=== PATIENT | female | born 1990 | race Caucasian/White ===

== ENCOUNTER 2022-03-05 10:45 | Inpatient (IN) | payer MEDICAID ==
[~2022-03-05] VITALS: Ht 170.2 cm; Wt 108.4 kg
[~2022-03-05 10:45] MED LIST: ASPI-1450 PO; ATOR40TA28 PO; BUME1TAB34 PO; CARV25 PO; CLON0.2T PO; FURO80 PO; HYDR-4808 PO; NIFE-79 PO; OMEP20 PO; PHOSLOC PO; PLEC3TAB2 PO; PROM-163 PO; SERT-158 PO; TEMA15CA PO; VALS160T2 PO
[2022-03-05 12:31] LABS: BASOPHILS % (AUTO) 0.7 % (0.0-2.0); HEMATOCRIT 30.5 % (36-46); HEMOGLOBIN 10.1 g/dL (12.0-16.0); LYMPHOCYTES # (AUTO) 1.4 K/uL (1.0-4.8); LYMPHOCYTES % (AUTO) 11.5 % (22.0-44.0); MEAN CORPUSCULAR HEMOGLOBIN 31.1 pg (26.0-34.0); MEAN CORPUSCULAR HGB CONC 33.2 G/dL (31.0-37.0); MEAN CORPUSCULAR VOLUME 94 fL (80-100); MONOCYTES # (AUTO) 0.5 K/uL (0.1-1.0); MONOCYTES % (AUTO) 4.2 % (2.0-9.0); NEUTROPHILS # (AUTO) 9.5 K/uL (1.8-7.7); NEUTROPHILS % (AUTO) 80.6 % (40.0-70.0); PLATELET COUNT (AUTO) 237 K/uL (150-450); RED BLOOD CELL COUNT(AUTO) 3.25 MIL/uL (4.00-5.20); RED CELL DISTRIBUTION WIDTH 16.2 % (11.5-14.5)
[2022-03-05 12:56] LABS: CALCIUM, TOTAL 7.7 mg/dL (8.8-10.5); CREATININE 13.58 mg/dL (0.60-1.30); POTASSIUM 5.8 mmol/L (3.5-5.1)
[2022-03-05 13:00] LABS: ALBUMIN 3.4 g/dL (3.4-5.0); BILIRUBIN,TOTAL 0.6 mg/dL (0.1-1.0); TOTAL PROTEIN, SERUM 7.8 g/dL (6.4-8.2)
[2022-03-05] MEDS ORDERED: MORPHINE SULFATE 4 MG/ML SYRINGE IVP ONE (13:15)
[2022-03-05] MEDS ORDERED: ONDANSETRON HCL 4 MG/2 ML VIAL IVP ONE (13:15)
[2022-03-05] MEDS ORDERED: CALCIUM GLUCONATE 1,000 MG in DEXTROSE 5%-WATER 50 ML IV ONE (14:45)
[2022-03-05] MEDS ORDERED: OxyCODONE HCL/ACETAMINOPHEN 5-325 MG TABLET PO PRN (15:00)
[2022-03-05] MEDS ORDERED: ACETAMINOPHEN 325 MG TABLET PO PRN (15:00)
[2022-03-05] MEDS ORDERED: DEXTROSE 50%-WATER 25 GM/50 ML SYRINGE IVP PRN (15:00)
[2022-03-05 15:22] LABS: COVID AG,FIA SOURCE NASAL SWAB
[2022-03-05] MEDS: HEPARIN SODIUM,PORCINE 5,000 UNITS/ML VIAL SQ SCH ×5 (15:41→23:31)
[2022-03-05 17:50] VITALS: BP 149/116
[2022-03-05 18:55] VITALS: BP 169/67
[2022-03-05 19:25] VITALS: BP 100/65
[2022-03-05 19:55] VITALS: BP 215/87
[2022-03-05 20:21] LABS: GLUCOMETER DEV NAME(LOC) 5S.2B; GLUCOSE,POINT OF CARE 106 MG/DL (70-110)
[2022-03-05 20:25] VITALS: BP 204/94
[2022-03-05] MEDS: DOCUSATE SODIUM 100 MG CAPSULE PO SCH (20:48)
[2022-03-05 20:55] VITALS: BP 185/85
[2022-03-05] MEDS: CloNIDine HCL 0.1 MG TABLET PO PRN (21:33)
[2022-03-06] VITALS (18 sets, daily range): BP systolic 134–226; BP diastolic 58–117
[2022-03-06 03:21] LABS: GLUCOMETER DEV NAME(LOC) 5S.2B; GLUCOSE,POINT OF CARE 83 MG/DL (70-110)
[2022-03-06 07:06] LABS: GLUCOMETER DEV NAME(LOC) 5S.2B; GLUCOSE,POINT OF CARE 76 MG/DL (70-110)
[2022-03-06] MEDS: HEPARIN SODIUM,PORCINE 5,000 UNITS/ML VIAL SQ SCH ×2 (08:00→16:00)
[2022-03-06] MEDS: DOCUSATE SODIUM 100 MG CAPSULE PO SCH ×2 (09:00→20:31)
[2022-03-06] MEDS: FAMOTIDINE 20 MG TABLET PO SCH (09:10)
[2022-03-06] MEDS: CloNIDine HCL 0.1 MG TABLET PO PRN (09:10)
[2022-03-06 09:36] LABS: BASOPHILS % (AUTO) 0.6 % (0.0-2.0); EOSINOPHILS % (AUTO) 3.9 % (1.0-6.0); HEMATOCRIT 30.7 % (36-46); HEMOGLOBIN 10.1 g/dL (12.0-16.0); LYMPHOCYTES # (AUTO) 1.4 K/uL (1.0-4.8); LYMPHOCYTES % (AUTO) 15.2 % (22.0-44.0); MEAN CORPUSCULAR HEMOGLOBIN 31.6 pg (26.0-34.0); MEAN CORPUSCULAR HGB CONC 33.1 G/dL (31.0-37.0); MEAN CORPUSCULAR VOLUME 96 fL (80-100); MONOCYTES # (AUTO) 0.4 K/uL (0.1-1.0); MONOCYTES % (AUTO) 4.5 % (2.0-9.0); NEUTROPHILS # (AUTO) 6.8 K/uL (1.8-7.7); NEUTROPHILS % (AUTO) 75.8 % (40.0-70.0); PLATELET COUNT (AUTO) 228 K/uL (150-450); RED BLOOD CELL COUNT(AUTO) 3.21 MIL/uL (4.00-5.20); RED CELL DISTRIBUTION WIDTH 16.7 % (11.5-14.5)
[2022-03-06 09:40] LABS: CALCIUM, TOTAL 8.5 mg/dL (8.8-10.5); CREATININE 11.05 mg/dL (0.60-1.30); POTASSIUM 4.7 mmol/L (3.5-5.1)
[2022-03-06] MEDS ORDERED: SODIUM CHLORIDE 0.9% 1,000 ML ONE (09:54)
[2022-03-06] MEDS ORDERED: HydrOXYzine PAMOATE 25 MG CAPSULE PO PRN (12:30)
[2022-03-06] MEDS ORDERED: CARV12 PO (12:32)
[2022-03-06] MEDS ORDERED: NIFE90TA65 PO (12:33)
[2022-03-06] MEDS: ONDANSETRON HCL 4 MG/2 ML VIAL IVP PRN (14:10)
[2022-03-06] MEDS: CloNIDine HCL 0.2 MG TABLET PO SCH ×2 (14:51→20:31)
[2022-03-06] MEDS ORDERED: LIDOCAINE/PF 1% 2 ML VIAL IV ONE (16:46)
[2022-03-06] MEDS: SEVELAMER CARBONATE 800 MG TABLET PO SCH (17:20)
[2022-03-06] MEDS: HydrALAZINE HCL 20 MG/ML VIAL IVP PRN ×2 (17:20→18:18)
[2022-03-06] MEDS: INSULIN LISPRO 100 UNITS/ML SQ PRN ×2 (17:48→20:37)
[2022-03-06] MEDS: CARVEDILOL 12.5 MG TABLET PO SCH (20:31)
[2022-03-06] MEDS ORDERED: ATORVASTATIN CALCIUM 40 MG TABLET PO SCH (21:00)
[2022-03-06] MEDS ORDERED: NIFEdipine 90 MG ER TABLET PO SCH (21:00)
[2022-03-06] MEDS ORDERED: BUMETANIDE 1 MG TABLET PO SCH (21:00)
[2022-03-06 21:31] LABS: GLUCOMETER DEV NAME(LOC) 5S.2B; GLUCOSE,POINT OF CARE 198 MG/DL (70-110)
[2022-03-06 21:31] LABS: GLUCOMETER DEV NAME(LOC) 5S.2B; GLUCOSE,POINT OF CARE 151 MG/DL (70-110)
[2022-03-06 21:31] LABS: GLUCOMETER DEV NAME(LOC) 5S.2B; GLUCOSE,POINT OF CARE 126 MG/DL (70-110)
[2022-03-07 00:12] VITALS: BP 172/79
[2022-03-07] MEDS: HydrALAZINE HCL 20 MG/ML VIAL IVP PRN (01:16)
[2022-03-07 05:30] VITALS: BP 149/71
[2022-03-07] MEDS: INSULIN LISPRO 100 UNITS/ML SQ PRN ×3 (05:50→17:36)
[2022-03-07 06:56] LABS: GLUCOMETER DEV NAME(LOC) 5S.2B; GLUCOSE,POINT OF CARE 173 MG/DL (70-110)
[2022-03-07] MEDS: HEPARIN SODIUM,PORCINE 5,000 UNITS/ML VIAL SQ SCH ×3 (08:00→15:49)
[2022-03-07 08:33] VITALS: BP 111/52
[2022-03-07] MEDS ORDERED: VALSARTAN 160 MG TABLET PO SCH (09:00)
[2022-03-07] MEDS ORDERED: ASPIRIN 81 MG CHEWABLE TABLET PO SCH (09:00)
[2022-03-07] MEDS: DOCUSATE SODIUM 100 MG CAPSULE PO SCH (09:00)
[2022-03-07] MEDS ORDERED: FUROSEMIDE 80 MG TABLET PO SCH (09:00)
[2022-03-07] MEDS: FAMOTIDINE 20 MG TABLET PO SCH (09:04)
[2022-03-07] MEDS: SEVELAMER CARBONATE 800 MG TABLET PO SCH ×3 (09:04→17:30)
[2022-03-07] MEDS: CloNIDine HCL 0.2 MG TABLET PO SCH ×2 (09:04→15:49)
[2022-03-07] MEDS: CARVEDILOL 12.5 MG TABLET PO SCH (09:04)
[2022-03-07] MEDS: ONDANSETRON HCL 4 MG/2 ML VIAL IVP PRN ×2 (09:12→15:54)
[2022-03-07] MEDS ORDERED: NIFE90TA91 PO ×2 (09:46→10:43)
[2022-03-07] MEDS ORDERED: SEVE800T17 PO (10:43)
[2022-03-07] MEDS ORDERED: CLON0.2T2 PO (10:43)
[2022-03-07] MEDS ORDERED: FURO80 PO (10:43)
[2022-03-07] MEDS ORDERED: CARV25 PO (10:43)
[2022-03-07] MEDS ORDERED: ATOR40TA71 PO (10:43)
[2022-03-07] MEDS ORDERED: ASPI81 PO (10:43)
[2022-03-07] MEDS ORDERED: VALS160T2 PO (10:43)
[2022-03-07 12:01] VITALS: BP 125/62
[2022-03-07 19:56] LABS: GLUCOMETER DEV NAME(LOC) 5S.2B; GLUCOSE,POINT OF CARE 170 MG/DL (70-110)
[2022-03-07 19:56] LABS: GLUCOMETER DEV NAME(LOC) 5S.2B; GLUCOSE,POINT OF CARE 207 MG/DL (70-110)
[2022-03-07] MEDS ORDERED: CARVEDILOL 25 MG TABLET PO SCH (21:00)
[2022-03-08] MEDS ORDERED: EPOETIN ALFA 10,000 UNITS/ML 2 ML VIAL SQ SCH (09:00)
== END 2022-03-07 19:40 | disposition home or self-care (01) | DRG 425 ==
LOC: EMS 10:45 → 5N 16:20
PROVIDERS: ADMIT Internal Medicine; ATTEND Internal Medicine
PROC: 5A1D70Z Performance of Urinary Filtration, Intermittent, Less than 6 Hours Per Day (ICD-10-PCS; principal; 2022-03-05)
PROC: 5A1D70Z Performance of Urinary Filtration, Intermittent, Less than 6 Hours Per Day (ICD-10-PCS; 2022-03-06)
DX: E87.70 Fluid overload, unspecified (principal); U07.1 COVID-19; I12.0 Hypertensive chronic kidney disease with stage 5 chronic kidney disease or end stage renal disease; N18.6 End stage renal disease; E11.22 Type 2 diabetes mellitus with diabetic chronic kidney disease; D63.1 Anemia in chronic kidney disease; N25.81 Secondary hyperparathyroidism of renal origin; Z20.822 Contact with and (suspected) exposure to COVID-19; E11.43 Type 2 diabetes mellitus with diabetic autonomic (poly)neuropathy; E66.01 Morbid (severe) obesity due to excess calories; E87.5 Hyperkalemia; K31.84 Gastroparesis; Z79.4 Long term (current) use of insulin; Z79.899 Other long term (current) drug therapy; Z83.3 Family history of diabetes mellitus; Z99.2 Dependence on renal dialysis; Z91.013 Allergy to seafood; Z68.37 Body mass index [BMI] 37.0-37.9, adult; Z86.73 Personal history of transient ischemic attack (TIA), and cerebral infarction without residual deficits; E11.40 Type 2 diabetes mellitus with diabetic neuropathy, unspecified
CPT/HCPCS: 71045; 80048; 80053; 82962; 83880; 84484; 84703; 85025; 87081; 87340; 90935; 93005; 99291; J0360; J0610; J0885; J1644; J2270; J2405; J3490; J7030; J7060; 36415-L1; 36415-TC

== ENCOUNTER 2023-01-14 09:52 | Inpatient (IN) | payer MEDICAID ==
[~2023-01-14] VITALS: Ht 165.1 cm; Wt 112.0 kg
[~2023-01-14 09:52] MED LIST changes: -ASPI-1450 PO; +ASPI81 PO; -ATOR40TA28 PO; +ATOR40TA71 PO; -BUME1TAB34 PO; -CLON0.2T PO; +CLON0.2T2 PO; -NIFE-79 PO; +NIFE90TA91 PO; -PROM-163 PO; +PROM-223 PO; +SEVE800T17 PO
[2023-01-14 11:23] LABS: BASOPHILS % (AUTO) 1.3 % (0.0-2.0); EOSINOPHILS % (AUTO) 3.5 % (1.0-6.0); HEMATOCRIT 24.9 % (36-46); HEMOGLOBIN 8.3 g/dL (12.0-16.0); MEAN CORPUSCULAR HEMOGLOBIN 31.4 pg (26.0-34.0); MEAN CORPUSCULAR HGB CONC 33.3 G/dL (31.0-37.0); MEAN CORPUSCULAR VOLUME 94 fL (80-100); MONOCYTES # (AUTO) 0.6 K/uL (0.1-1.0); MONOCYTES % (AUTO) 7.7 % (2.0-9.0); NEUTROPHILS % (AUTO) 74.5 % (40.0-70.0); RED BLOOD CELL COUNT(AUTO) 2.64 MIL/uL (4.00-5.20); RED CELL DISTRIBUTION WIDTH 19.3 % (11.5-14.5)
[2023-01-14 11:26] LABS: CALCIUM, TOTAL 8.6 mg/dL (8.8-10.5); CREATININE 9.9 mg/dL (0.60-1.30); POTASSIUM 5.6 mmol/L (3.5-5.1)
[2023-01-14 11:32] LABS: ALBUMIN 3.5 g/dL (3.4-5.0); BILIRUBIN,TOTAL 0.4 mg/dL (0.1-1.0); TOTAL PROTEIN, SERUM 8.2 g/dL (6.4-8.2)
[2023-01-14 11:39] LABS: PLATELET COUNT (AUTO) 191 K/uL (150-450)
[2023-01-14] MEDS ORDERED: CALCIUM GLUCONATE 1,000 MG in DEXTROSE 5%-WATER 50 ML IV ONE (12:00)
[2023-01-14] MEDS ORDERED: MORPHINE SULFATE 4 MG/ML SYRINGE IVP ONE (12:45)
[2023-01-14] MEDS ORDERED: ONDANSETRON HCL 4 MG/2 ML VIAL IVP ONE (12:45)
[2023-01-14 13:09] LABS: INR 1.2 (0.9-1.1); PROTHROMBIN TIME 12.6 SEC (9.4-11.6)
[2023-01-14] MEDS ORDERED: HydrOXYzine PAMOATE 25 MG CAPSULE PO PRN (15:30)
[2023-01-14] MEDS ORDERED: ACETAMINOPHEN 325 MG TABLET PO PRN (15:30)
[2023-01-14] MEDS ORDERED: ZOLPIDEM TARTRATE 5 MG TABLET PO PRN (15:30)
[2023-01-14] MEDS ORDERED: BISACODYL 10 MG RECTAL RECTAL SUPPOSITORY PR PRN (15:30)
[2023-01-14] MEDS ORDERED: MAGNESIUM HYDROXIDE SUSPENSION 30 ML UDCUP PO PRN (15:30)
[2023-01-14] MEDS ORDERED: NIFE90TA91 PO (15:32)
[2023-01-14] MEDS ORDERED: TEMA15CA PO (15:32)
[2023-01-14] MEDS ORDERED: ATOR40TA28 PO (15:32)
[2023-01-14] MEDS ORDERED: PANT40TA54 PO (15:38)
[2023-01-14] MEDS ORDERED: ALBU18HF12 PO (15:38)
[2023-01-14] MEDS ORDERED: LIDO5CRE TP (15:38)
[2023-01-14] MEDS ORDERED: GABA-529 PO (15:38)
[2023-01-14] MEDS ORDERED: CALC0.253 PO (15:38)
[2023-01-14] MEDS ORDERED: CARV12.530 PO (15:38)
[2023-01-14] MEDS ORDERED: CHOL231P PO (15:38)
[2023-01-14] MEDS ORDERED: SODI10PO2 PO (15:38)
[2023-01-14] MEDS ORDERED: [UNRECOGNIZED DRUG - CODE] PO (15:38)
[2023-01-14] MEDS: HEPARIN SODIUM,PORCINE 5,000 UNITS/ML VIAL SQ SCH ×2 (15:45→23:53)
[2023-01-14] MEDS: CloNIDine HCL 0.2 MG TABLET PO SCH ×2 (15:45→23:40)
[2023-01-14] MEDS: MORPHINE SULFATE 2 MG/ML SYRINGE IVP PRN ×2 (15:45→23:53)
[2023-01-14] MEDS: ONDANSETRON HCL 4 MG/2 ML VIAL IVP PRN (15:48)
[2023-01-14] MEDS: CALCIUM ACETATE 667 MG CAPSULE PO SCH (17:40)
[2023-01-14 21:15] VITALS: BP 170/81; PULSE 62; RESP 19; TEMP 97.6
[2023-01-14 21:30] VITALS: BP 178/79; PULSE 60; RESP 19
[2023-01-14 22:00] VITALS: BP 180/86; PULSE 60; RESP 19
[2023-01-14 22:30] VITALS: BP 180/82; PULSE 68; RESP 18
[2023-01-14 23:00] VITALS: BP 182/64; PULSE 68; RESP 18
[2023-01-14 23:30] VITALS: BP 186/80; PULSE 69; RESP 18
[2023-01-14] MEDS: DOCUSATE SODIUM 100 MG CAPSULE PO SCH (23:40)
[2023-01-14] MEDS: ATORVASTATIN CALCIUM 40 MG TABLET PO SCH (23:41)
[2023-01-14] MEDS: METOCLOPRAMIDE HCL 5 MG TABLET PO SCH (23:41)
[2023-01-14] MEDS: CARVEDILOL 25 MG TABLET PO SCH (23:41)
[2023-01-14] MEDS: NIFEdipine 90 MG ER TABLET PO SCH (23:41)
[2023-01-15] VITALS (16 sets, daily range): BP systolic 11–198; BP diastolic 61–86; PULSE 61–76; RESP 18–20; TEMP 97.7–98.6
[2023-01-15] MEDS: HydrALAZINE HCL 20 MG/ML VIAL IVP PRN ×2 (01:14→20:49)
[2023-01-15] MEDS: CloNIDine HCL 0.2 MG TABLET PO SCH ×3 (04:45→20:55)
[2023-01-15] MEDS: ONDANSETRON HCL 4 MG/2 ML VIAL IVP PRN ×3 (06:42→19:28)
[2023-01-15] MEDS: MORPHINE SULFATE 2 MG/ML SYRINGE IVP PRN ×3 (06:43→19:28)
[2023-01-15] MEDS: HEPARIN SODIUM,PORCINE 5,000 UNITS/ML VIAL SQ SCH ×3 (08:00→23:22)
[2023-01-15] MEDS: DOCUSATE SODIUM 100 MG CAPSULE PO SCH ×2 (09:00→20:49)
[2023-01-15] MEDS: SERTRALINE HCL 50 MG TABLET PO SCH (09:21)
[2023-01-15] MEDS: VALSARTAN 160 MG TABLET PO SCH (09:21)
[2023-01-15] MEDS: CARVEDILOL 25 MG TABLET PO SCH ×2 (09:22→20:54)
[2023-01-15] MEDS: ASPIRIN 81 MG CHEWABLE TABLET PO SCH (09:22)
[2023-01-15] MEDS: PANTOPRAZOLE SODIUM 40 MG DR TABLET PO SCH (09:22)
[2023-01-15] MEDS: CALCIUM ACETATE 667 MG CAPSULE PO SCH ×3 (09:23→18:00)
[2023-01-15] MEDS: HYDROCODONE/ACETAMINOPHEN 5-325 MG TABLET PO PRN ×3 (09:37→23:24)
[2023-01-15] MEDS: METOCLOPRAMIDE HCL 5 MG TABLET PO SCH ×3 (12:29→20:49)
[2023-01-15 14:53] LABS: BASOPHILS % (AUTO) 0.6 % (0.0-2.0); EOSINOPHILS % (AUTO) 4.7 % (1.0-6.0); HEMATOCRIT 24.1 % (36-46); HEMOGLOBIN 7.9 g/dL (12.0-16.0); LYMPHOCYTES # (AUTO) 0.8 K/uL (1.0-4.8); LYMPHOCYTES % (AUTO) 14.4 % (22.0-44.0); MEAN CORPUSCULAR HGB CONC 32.7 G/dL (31.0-37.0); MEAN CORPUSCULAR VOLUME 95 fL (80-100); MONOCYTES # (AUTO) 0.4 K/uL (0.1-1.0); MONOCYTES % (AUTO) 7.6 % (2.0-9.0); NEUTROPHILS # (AUTO) 4.2 K/uL (1.8-7.7); NEUTROPHILS % (AUTO) 72.7 % (40.0-70.0); PLATELET COUNT (AUTO) 176 K/uL (150-450); RED BLOOD CELL COUNT(AUTO) 2.54 MIL/uL (4.00-5.20); RED CELL DISTRIBUTION WIDTH 19.8 % (11.5-14.5)
[2023-01-15 15:05] LABS: CALCIUM, TOTAL 8.8 mg/dL (8.8-10.5); CREATININE 6.46 mg/dL (0.60-1.30); POTASSIUM 4.9 mmol/L (3.5-5.1)
[2023-01-15] MEDS ORDERED: SODIUM CHLORIDE 0.9% 1,000 ML ONE (17:04)
[2023-01-15] MEDS: ATORVASTATIN CALCIUM 40 MG TABLET PO SCH (20:49)
[2023-01-15] MEDS: NIFEdipine 90 MG ER TABLET PO SCH (21:40)
[2023-01-16] VITALS: BP 149/73; PULSE 67; RESP 20; TEMP 98.2
[2023-01-16] MEDS: MORPHINE SULFATE 2 MG/ML SYRINGE IVP PRN ×5 (02:49→23:22)
[2023-01-16] MEDS: ONDANSETRON HCL 4 MG/2 ML VIAL IVP PRN ×4 (02:49→23:21)
[2023-01-16 04:00] VITALS: BP 139/54; PULSE 63; RESP 18; TEMP 98
[2023-01-16] MEDS: HYDROCODONE/ACETAMINOPHEN 5-325 MG TABLET PO PRN ×2 (06:08→20:27)
[2023-01-16 07:26] LABS: BASOPHILS % (AUTO) 0.7 % (0.0-2.0); EOSINOPHILS % (AUTO) 6.2 % (1.0-6.0); HEMATOCRIT 24.9 % (36-46); HEMOGLOBIN 7.9 g/dL (12.0-16.0); LYMPHOCYTES % (AUTO) 18.2 % (22.0-44.0); MEAN CORPUSCULAR HEMOGLOBIN 30.3 pg (26.0-34.0); MEAN CORPUSCULAR HGB CONC 31.7 G/dL (31.0-37.0); MEAN CORPUSCULAR VOLUME 95 fL (80-100); MONOCYTES # (AUTO) 0.5 K/uL (0.1-1.0); MONOCYTES % (AUTO) 9.9 % (2.0-9.0); NEUTROPHILS # (AUTO) 3.6 K/uL (1.8-7.7); PLATELET COUNT (AUTO) 184 K/uL (150-450); RED BLOOD CELL COUNT(AUTO) 2.61 MIL/uL (4.00-5.20); RED CELL DISTRIBUTION WIDTH 20.4 % (11.5-14.5)
[2023-01-16 07:37] VITALS: BP 105/44; PULSE 60; RESP 17; TEMP 97.9
[2023-01-16 07:48] LABS: CREATININE 4.18 mg/dL (0.60-1.30); MAGNESIUM 2.4 mg/dL (1.80-2.40); PHOSPHORUS 5.2 mg/dL (2.5-4.9); POTASSIUM 4.5 mmol/L (3.5-5.1)
[2023-01-16 07:53] LABS: HEMOGLOBIN A1C 5.8 % (3.8-5.6)
[2023-01-16] MEDS: CALCIUM ACETATE 667 MG CAPSULE PO SCH ×3 (08:00→17:53)
[2023-01-16] MEDS: HEPARIN SODIUM,PORCINE 5,000 UNITS/ML VIAL SQ SCH ×4 (08:00→23:21)
[2023-01-16] MEDS: PANTOPRAZOLE SODIUM 40 MG DR TABLET PO SCH (08:24)
[2023-01-16] MEDS: VALSARTAN 160 MG TABLET PO SCH ×2 (08:24→09:00)
[2023-01-16] MEDS: METOCLOPRAMIDE HCL 5 MG TABLET PO SCH ×3 (08:24→20:26)
[2023-01-16] MEDS: CARVEDILOL 25 MG TABLET PO SCH ×3 (08:24→20:26)
[2023-01-16] MEDS: ASPIRIN 81 MG CHEWABLE TABLET PO SCH (08:24)
[2023-01-16] MEDS: SERTRALINE HCL 50 MG TABLET PO SCH (08:24)
[2023-01-16] MEDS: CloNIDine HCL 0.2 MG TABLET PO SCH ×4 (08:24→20:26)
[2023-01-16] MEDS: DOCUSATE SODIUM 100 MG CAPSULE PO SCH ×2 (09:00→20:26)
[2023-01-16] MEDS ORDERED: FUROSEMIDE 80 MG TABLET PO SCH (09:00)
[2023-01-16] MEDS ORDERED: LIDOCAINE/PF 1% 2 ML VIAL IM ONE (12:00)
[2023-01-16 15:23] VITALS: BP 134/50; PULSE 66; RESP 18; TEMP 97.7
[2023-01-16 20:00] VITALS: BP 110/76; PULSE 69; RESP 18; TEMP 98.2
[2023-01-16] MEDS: NIFEdipine 90 MG ER TABLET PO SCH (20:26)
[2023-01-16] MEDS: ATORVASTATIN CALCIUM 40 MG TABLET PO SCH (20:27)
[2023-01-17] VITALS (14 sets, daily range): BP systolic 94–132; BP diastolic 35–67; PULSE 59–87; RESP 17–20; TEMP 97.3–98.4
[2023-01-17] MEDS: MORPHINE SULFATE 2 MG/ML SYRINGE IVP PRN ×2 (05:33→10:42)
[2023-01-17] MEDS: ONDANSETRON HCL 4 MG/2 ML VIAL IVP PRN ×2 (05:33→13:34)
[2023-01-17 07:35] LABS: BASOPHILS % (AUTO) 0.8 % (0.0-2.0); EOSINOPHILS % (AUTO) 5.9 % (1.0-6.0); HEMATOCRIT 24.6 % (36-46); HEMOGLOBIN 8.1 g/dL (12.0-16.0); LYMPHOCYTES # (AUTO) 1.2 K/uL (1.0-4.8); LYMPHOCYTES % (AUTO) 18.3 % (22.0-44.0); MEAN CORPUSCULAR HEMOGLOBIN 31.5 pg (26.0-34.0); MEAN CORPUSCULAR HGB CONC 33.1 G/dL (31.0-37.0); MEAN CORPUSCULAR VOLUME 95 fL (80-100); MONOCYTES # (AUTO) 0.5 K/uL (0.1-1.0); MONOCYTES % (AUTO) 8.4 % (2.0-9.0); NEUTROPHILS # (AUTO) 4.2 K/uL (1.8-7.7); NEUTROPHILS % (AUTO) 66.6 % (40.0-70.0); PLATELET COUNT (AUTO) 181 K/uL (150-450); RED BLOOD CELL COUNT(AUTO) 2.58 MIL/uL (4.00-5.20); RED CELL DISTRIBUTION WIDTH 19.9 % (11.5-14.5)
[2023-01-17 07:52] LABS: CALCIUM, TOTAL 8.7 mg/dL (8.8-10.5); CREATININE 6.14 mg/dL (0.60-1.30); POTASSIUM 5.2 mmol/L (3.5-5.1)
[2023-01-17] MEDS: HEPARIN SODIUM,PORCINE 5,000 UNITS/ML VIAL SQ SCH ×2 (08:38→16:00)
[2023-01-17] MEDS: HYDROCODONE/ACETAMINOPHEN 5-325 MG TABLET PO PRN ×2 (08:38→13:34)
[2023-01-17] MEDS: CALCIUM ACETATE 667 MG CAPSULE PO SCH ×2 (08:38→12:00)
[2023-01-17] MEDS: DOCUSATE SODIUM 100 MG CAPSULE PO SCH (08:39)
[2023-01-17] MEDS: METOCLOPRAMIDE HCL 5 MG TABLET PO SCH ×2 (08:39→16:00)
[2023-01-17] MEDS: SERTRALINE HCL 50 MG TABLET PO SCH (08:39)
[2023-01-17] MEDS: PANTOPRAZOLE SODIUM 40 MG DR TABLET PO SCH (08:39)
[2023-01-17] MEDS: ASPIRIN 81 MG CHEWABLE TABLET PO SCH (08:39)
[2023-01-17] MEDS ORDERED: SODIUM CHLORIDE 0.9% 4,000 ML ONE (08:43)
[2023-01-17] MEDS: CARVEDILOL 25 MG TABLET PO SCH (09:00)
[2023-01-17] MEDS: CloNIDine HCL 0.2 MG TABLET PO SCH ×2 (09:00→16:00)
[2023-01-17] MEDS: VALSARTAN 160 MG TABLET PO SCH (09:00)
[2023-01-17] MEDS ORDERED: EPOETIN ALFA 10,000 UNITS/ML VIAL SQ SCH (09:00)
[2023-01-17] MEDS ORDERED: LIDOCAINE/PF 1% 2 ML VIAL IM ONE (12:00)
== END 2023-01-17 15:40 | disposition left against medical advice (07) | DRG 199 ==
LOC: EMS 09:53 → 5S 20:00
PROVIDERS: ADMIT Internal Medicine; ATTEND Internal Medicine
PROC: 5A1D70Z Performance of Urinary Filtration, Intermittent, Less than 6 Hours Per Day (ICD-10-PCS; principal; 2023-01-14)
PROC: 5A1D70Z Performance of Urinary Filtration, Intermittent, Less than 6 Hours Per Day (ICD-10-PCS; 2023-01-15)
PROC: 5A1D70Z Performance of Urinary Filtration, Intermittent, Less than 6 Hours Per Day (ICD-10-PCS; 2023-01-17)
DX: I16.0 Hypertensive urgency (principal); N18.6 End stage renal disease; D63.1 Anemia in chronic kidney disease; E11.22 Type 2 diabetes mellitus with diabetic chronic kidney disease; E87.1 Hypo-osmolality and hyponatremia; E87.5 Hyperkalemia; I12.0 Hypertensive chronic kidney disease with stage 5 chronic kidney disease or end stage renal disease; E87.70 Fluid overload, unspecified; E11.65 Type 2 diabetes mellitus with hyperglycemia; E11.43 Type 2 diabetes mellitus with diabetic autonomic (poly)neuropathy; K52.9 Noninfective gastroenteritis and colitis, unspecified; I69.398 Other sequelae of cerebral infarction; K31.84 Gastroparesis; E78.5 Hyperlipidemia, unspecified; Z53.29 Procedure and treatment not carried out because of patient's decision for other reasons; E66.01 Morbid (severe) obesity due to excess calories; Z79.899 Other long term (current) drug therapy; Z99.2 Dependence on renal dialysis; Z68.41 Body mass index [BMI] 40.0-44.9, adult; Z91.013 Allergy to seafood
CPT/HCPCS: 71045; 74176; 80048; 80053; 83036; 83735; 83880; 84100; 84484; 85025; 85610; 85730; 87081; 87340; 90935; 93005; 99285; J0360; J0610; J0885; J1644; J2270; J2405; J3490; J7030; J7060; 36415-L1; 36415-TC

== ENCOUNTER 2023-02-25 19:26 | Inpatient (IN) | payer MEDICAID ==
[~2023-02-25] VITALS: Ht 162.6 cm; Wt 113.7 kg
[~2023-02-25 19:26] MED LIST changes: +ALBU18HF12 PO; +ATOR40TA28 PO; -ATOR40TA71 PO; +CALC0.253 PO; +CARV12.530 PO; -CARV25 PO; +CHOL231P PO; +GABA-529 PO; +LIDO5CRE TP; -OMEP20 PO; +PANT40TA54 PO; +SODI10PO2 PO; +[UNRECOGNIZED DRUG - CODE] PO
[2023-02-25] MEDS ORDERED: MORPHINE SULFATE 2 MG/ML SYRINGE IVP ONE (22:15)
[2023-02-25] MEDS ORDERED: ONDANSETRON HCL 4 MG/2 ML VIAL IVP ONE (22:15)
[2023-02-25] MEDS ORDERED: ACETAMINOPHEN 500 MG TABLET PO ONE (22:15)
[2023-02-25 22:16] LABS: ANION GAP 16 mmol/L (8-16); CALCIUM, TOTAL 8.4 mg/dL (8.8-10.5); CARBON DIOXIDE 29 mmol/L (22-29); CHLORIDE 89 mmol/L (98-107); CREATININE 5.67 mg/dL (0.60-1.30); GLOMERULAR FILTR. RATE CALC 9 mL/min (>60); GLUCOSE,RANDOM 141 mg/dL (70-110); POTASSIUM 3.7 mmol/L (3.5-5.1); SODIUM SERUM 134 mmol/L (136-145); UREA NITROGEN, BLOOD 37 mg/dL (7-18)
[2023-02-25 22:24] LABS: TROPONIN I-HIGH SENSITIVITY 22 ng/L (<51)
[2023-02-25 22:27] LABS: ALANINE AMINOTRANSFERASE 7 U/L (12-78); ALBUMIN 3.4 g/dL (3.4-5.0); ALKALINE PHOSPHATASE 219 U/L (46-116); ASPARTATE AMINOTRANSFERASE 15 U/L (15-37); BILIRUBIN,TOTAL 0.7 mg/dL (0.1-1.0); HCG,QUANTITATIVE < 1 mIU/mL (0-6)
[2023-02-25] MEDS ORDERED: HYDROCODONE/ACETAMINOPHEN 5-325 MG TABLET PO PRN (23:15)
[2023-02-25] MEDS ORDERED: AZITHROMYCIN 500 MG/NS 250 ML IV ONE (23:15)
[2023-02-25] MEDS ORDERED: BISACODYL 10 MG RECTAL RECTAL SUPPOSITORY PR PRN ×2 (23:15→23:30)
[2023-02-25] MEDS ORDERED: MAGNESIUM HYDROXIDE SUSPENSION 30 ML UDCUP PO PRN ×2 (23:15→23:30)
[2023-02-25] MEDS ORDERED: ZOLPIDEM TARTRATE 5 MG TABLET PO PRN ×2 (23:15→23:30)
[2023-02-25] MEDS ORDERED: IPRATROPIUM BROMIDE 0.5 MG/2.5 ML NEB SOLUTION NEB PRN ×2 (23:15→23:30)
[2023-02-25] MEDS ORDERED: CefTRIAXone 1 GM/DEXTROSE 50 ML IV ONE (23:15)
[2023-02-25] MEDS ORDERED: ACETAMINOPHEN 325 MG TABLET PO PRN ×2 (23:15→23:30)
[2023-02-25] MEDS ORDERED: ALBUTEROL SULFATE 2.5 MG/0.5 ML NEB SOLUTION NEB PRN ×2 (23:15→23:30)
[2023-02-25] MEDS ORDERED: ALBUTEROL SULFATE HFA 90 MCG/PUFF 8 GM INHALER IH PRN (23:15)
[2023-02-25] MEDS ORDERED: MORPHINE SULFATE 2 MG/ML SYRINGE IVP PRN (23:15)
[2023-02-26] VITALS (9 sets, daily range): BP systolic 119–166; BP diastolic 56–105; PULSE 63–75; RESP 17–20; TEMP 97.7–98.8
[2023-02-26] MEDS ORDERED: HEPARIN SODIUM,PORCINE 5,000 UNITS/ML VIAL SQ SCH
[2023-02-26 00:54] LABS: EOSINOPHILS % (AUTO) 4.3 % (1.0-6.0); MONOCYTES # (AUTO) 0.5 K/uL (0.1-1.0); MONOCYTES % (AUTO) 6.3 % (2.0-9.0); RED BLOOD CELL COUNT(AUTO) 1.95 MIL/uL (4.00-5.20)
[2023-02-26 00:59] LABS: BASOPHILS % (AUTO) 0.3 % (0.0-2.0); LYMPHOCYTES % (AUTO) 13.3 % (22.0-44.0); MEAN CORPUSCULAR HEMOGLOBIN 31.8 pg (26.0-34.0); MEAN CORPUSCULAR HGB CONC 33.5 G/dL (31.0-37.0); MEAN CORPUSCULAR VOLUME 95 fL (80-100); NEUTROPHILS # (AUTO) 5.6 K/uL (1.8-7.7); NEUTROPHILS % (AUTO) 75.8 % (40.0-70.0); PLATELET COUNT (AUTO) 186 K/uL (150-450); RED CELL DISTRIBUTION WIDTH 16.6 % (11.5-14.5); WHITE BLOOD COUNT (AUTO) 7.4 K/uL (4.5-11.0)
[2023-02-26] MEDS ORDERED: DiphenhydrAMINE HCL 50 MG/ML VIAL IVP ONE (01:00)
[2023-02-26] MEDS ORDERED: METOCLOPRAMIDE HCL 5 MG/ML 2 ML VIAL IVP ONE ×2 (01:00→23:45)
[2023-02-26 01:02] LABS: HEMATOCRIT 18.6 % (36-46); HEMOGLOBIN 6.2 g/dL (12.0-16.0)
[2023-02-26 01:19] LABS: RBC MORPHOLOGY COMMENT NORMAL RBC MORPH
[2023-02-26] MEDS: ESCITALOPRAM OXALATE 10 MG TABLET PO SCH (08:16)
[2023-02-26] MEDS: ASPIRIN 81 MG CHEWABLE TABLET PO SCH (08:16)
[2023-02-26] MEDS: DOCUSATE SODIUM 100 MG CAPSULE PO SCH ×2 (08:16→21:00)
[2023-02-26] MEDS: CALCIUM ACETATE 667 MG CAPSULE PO SCH ×3 (08:16→17:00)
[2023-02-26] MEDS: GABAPENTIN 100 MG CAPSULE PO SCH ×3 (08:16→21:42)
[2023-02-26] MEDS: HYDROCODONE/ACETAMINOPHEN 5-325 MG TABLET PO PRN ×3 (08:16→17:00)
[2023-02-26] MEDS: CALCITRIOL 0.25 MCG CAPSULE PO SCH (08:16)
[2023-02-26] MEDS: HEPARIN SODIUM,PORCINE 5,000 UNITS/ML VIAL SQ SCH ×3 (08:17→15:39)
[2023-02-26] MEDS: PANTOPRAZOLE SODIUM 40 MG/VIAL IVP SCH (08:17)
[2023-02-26] MEDS: CARVEDILOL 6.25 MG TABLET PO SCH ×2 (08:17→21:42)
[2023-02-26] MEDS: MORPHINE SULFATE 2 MG/ML SYRINGE IVP PRN ×4 (08:37→22:56)
[2023-02-26] MEDS ORDERED: PANTOPRAZOLE SODIUM 40 MG DR TABLET PO SCH (09:00)
[2023-02-26] MEDS: PROMETHAZINE HCL 25 MG TABLET PO SCH ×2 (09:00→21:45)
[2023-02-26] MEDS ORDERED: PANTOPRAZOLE SODIUM 40 MG/VIAL IVP SCH (09:00)
[2023-02-26] MEDS ORDERED: ONDANSETRON HCL 4 MG/2 ML VIAL IM PRN (09:15)
[2023-02-26] MEDS: ONDANSETRON HCL 4 MG/2 ML VIAL IVP PRN ×3 (09:28→21:42)
[2023-02-26] MEDS: INSULIN LISPRO 100 UNITS/ML SQ PRN (12:25)
[2023-02-26] MEDS ORDERED: DEXTROSE 50%-WATER 25 GM/50 ML SYRINGE IVP PRN (12:30)
[2023-02-26] MEDS: PROMETHAZINE HCL 25 MG TABLET PO PRN (17:02)
[2023-02-26] MEDS: MIRTAZAPINE 15 MG TABLET PO SCH (21:42)
[2023-02-26] MEDS: PRAZOSIN HCL 1 MG CAPSULE PO SCH (21:42)
[2023-02-26] MEDS: ATORVASTATIN CALCIUM 40 MG TABLET PO SCH (21:42)
[2023-02-26] MEDS ORDERED: SODIUM CHLORIDE 0.9% 1,000 ML ONE (22:31)
[2023-02-27] VITALS (22 sets, daily range): BP systolic 101–180; BP diastolic 38–68; PULSE 61–74; RESP 18–20; TEMP 97.7–98.2
[2023-02-27 02:16] LABS: GLUCOMETER DEV NAME(LOC) 5N.2C; GLUCOSE,POINT OF CARE 97 MG/DL (70-110)
[2023-02-27] MEDS: MORPHINE SULFATE 2 MG/ML SYRINGE IVP PRN ×5 (03:42→21:03)
[2023-02-27] MEDS: AZITHROMYCIN 500 MG/NS 250 ML IV SCH ×2 (03:42→23:49)
[2023-02-27] MEDS: CefTRIAXone SODIUM 2 GM in DEXTROSE 5%-WATER 50 ML IV SCH ×2 (03:42→22:29)
[2023-02-27 05:41] LABS: GLUCOMETER DEV NAME(LOC) 5S.1B; GLUCOSE,POINT OF CARE 101 MG/DL (70-110)
[2023-02-27 05:41] LABS: GLUCOMETER DEV NAME(LOC) 5S.1B; GLUCOSE,POINT OF CARE 152 MG/DL (70-110)
[2023-02-27 06:06] LABS: COVID AG,FIA SOURCE NASOPHARYNGEAL
[2023-02-27 06:12] LABS: INFLUENZA TYPE A NEGATIVE FOR TYPE A (NEGATIVE); INFLUENZA TYPE B NEGATIVE FOR TYPE B (NEGATIVE)
[2023-02-27 06:29] LABS: SARS-COV2 (COVID) ANTIGEN,FIA Negative (Negative)
[2023-02-27] MEDS: CALCIUM ACETATE 667 MG CAPSULE PO SCH ×3 (08:00→16:53)
[2023-02-27] MEDS: ONDANSETRON HCL 4 MG/2 ML VIAL IVP PRN ×3 (08:17→23:48)
[2023-02-27] MEDS: GABAPENTIN 100 MG CAPSULE PO SCH ×3 (08:21→20:15)
[2023-02-27] MEDS: ASPIRIN 81 MG CHEWABLE TABLET PO SCH (08:21)
[2023-02-27] MEDS: ESCITALOPRAM OXALATE 10 MG TABLET PO SCH (08:21)
[2023-02-27] MEDS: FERROUS SULFATE 325 MG EC TABLET PO SCH (08:21)
[2023-02-27] MEDS: HEPARIN SODIUM,PORCINE 5,000 UNITS/ML VIAL SQ SCH ×4 (08:21→23:48)
[2023-02-27] MEDS: PANTOPRAZOLE SODIUM 40 MG/VIAL IVP SCH (08:22)
[2023-02-27] MEDS: CARVEDILOL 6.25 MG TABLET PO SCH ×3 (08:31→20:15)
[2023-02-27] MEDS: HYDROCODONE/ACETAMINOPHEN 5-325 MG TABLET PO PRN ×3 (09:57→18:12)
[2023-02-27 10:07] LABS: EOSINOPHILS % (AUTO) 4.9 % (1.0-6.0); LYMPHOCYTES # (AUTO) 1.5 K/uL (1.0-4.8); LYMPHOCYTES % (AUTO) 23.1 % (22.0-44.0); MEAN CORPUSCULAR HEMOGLOBIN 31.9 pg (26.0-34.0); MEAN CORPUSCULAR HGB CONC 32.8 G/dL (31.0-37.0); MEAN CORPUSCULAR VOLUME 97 fL (80-100); MONOCYTES # (AUTO) 0.4 K/uL (0.1-1.0); MONOCYTES % (AUTO) 6.8 % (2.0-9.0); NEUTROPHILS # (AUTO) 4.2 K/uL (1.8-7.7); NEUTROPHILS % (AUTO) 64.2 % (40.0-70.0); PLATELET COUNT (AUTO) 203 K/uL (150-450); RED BLOOD CELL COUNT(AUTO) 1.92 MIL/uL (4.00-5.20); RED CELL DISTRIBUTION WIDTH 16.7 % (11.5-14.5); WHITE BLOOD COUNT (AUTO) 6.5 K/uL (4.5-11.0)
[2023-02-27 10:17] LABS: HEMATOCRIT 18.6 % (36-46); HEMOGLOBIN 6.1 g/dL (12.0-16.0)
[2023-02-27 10:22] LABS: ALBUMIN 3.2 g/dL (3.4-5.0); BILIRUBIN,TOTAL 0.5 mg/dL (0.1-1.0); CALCIUM, TOTAL 8.4 mg/dL (8.8-10.5); CREATININE 8.23 mg/dL (0.60-1.30); POTASSIUM 4.7 mmol/L (3.5-5.1); TOTAL PROTEIN, SERUM 7.6 g/dL (6.4-8.2)
[2023-02-27 11:41] LABS: GLUCOMETER DEV NAME(LOC) 5N.1C; GLUCOSE,POINT OF CARE 82 MG/DL (70-110)
[2023-02-27] MEDS ORDERED: LIDOCAINE/PF 1% 2 ML VIAL IM ONE (12:00)
[2023-02-27 12:27] LABS: GLUCOMETER DEV NAME(LOC) 5N.2C; GLUCOSE,POINT OF CARE 122 MG/DL (70-110)
[2023-02-27 17:31] LABS: GLUCOMETER DEV NAME(LOC) 5S.1B; GLUCOSE,POINT OF CARE 85 MG/DL (70-110)
[2023-02-27] MEDS: MIRTAZAPINE 15 MG TABLET PO SCH (20:15)
[2023-02-27] MEDS: PRAZOSIN HCL 1 MG CAPSULE PO SCH (20:16)
[2023-02-27] MEDS: ATORVASTATIN CALCIUM 40 MG TABLET PO SCH (20:16)
[2023-02-27] MEDS: INSULIN LISPRO 100 UNITS/ML SQ PRN (20:17)
[2023-02-27 21:11] LABS: GLUCOMETER DEV NAME(LOC) 5N.2C; GLUCOSE,POINT OF CARE 172 MG/DL (70-110)
[2023-02-28] MEDS: PROMETHAZINE HCL 25 MG TABLET PO PRN ×2 (00:50→17:34)
[2023-02-28] MEDS: MORPHINE SULFATE 2 MG/ML SYRINGE IVP PRN ×6 (00:51→21:07)
[2023-02-28 00:55] VITALS: BP 136/46; PULSE 72; RESP 16; TEMP 98.6
[2023-02-28 04:40] VITALS: BP 124/46; PULSE 64; RESP 16; TEMP 97.8
[2023-02-28 05:01] LABS: GLUCOMETER DEV NAME(LOC) 5N.2C; GLUCOSE,POINT OF CARE 121 MG/DL (70-110)
[2023-02-28 07:07] LABS: BASOPHILS % (AUTO) 0.6 % (0.0-2.0); EOSINOPHILS % (AUTO) 4.5 % (1.0-6.0); HEMATOCRIT 21.8 % (36-46); HEMOGLOBIN 7.2 g/dL (12.0-16.0); LYMPHOCYTES # (AUTO) 1.3 K/uL (1.0-4.8); LYMPHOCYTES % (AUTO) 19.6 % (22.0-44.0); MEAN CORPUSCULAR HEMOGLOBIN 32.1 pg (26.0-34.0); MEAN CORPUSCULAR HGB CONC 33.2 G/dL (31.0-37.0); MEAN CORPUSCULAR VOLUME 96 fL (80-100); MONOCYTES # (AUTO) 0.6 K/uL (0.1-1.0); MONOCYTES % (AUTO) 9.5 % (2.0-9.0); NEUTROPHILS # (AUTO) 4.5 K/uL (1.8-7.7); NEUTROPHILS % (AUTO) 65.8 % (40.0-70.0); PLATELET COUNT (AUTO) 205 K/uL (150-450); RED BLOOD CELL COUNT(AUTO) 2.26 MIL/uL (4.00-5.20); RED CELL DISTRIBUTION WIDTH 16.7 % (11.5-14.5); WHITE BLOOD COUNT (AUTO) 6.8 K/uL (4.5-11.0)
[2023-02-28 07:29] LABS: ALBUMIN 3.3 g/dL (3.4-5.0); BILIRUBIN,TOTAL 0.4 mg/dL (0.1-1.0); CALCIUM, TOTAL 8.6 mg/dL (8.8-10.5); CREATININE 5.77 mg/dL (0.60-1.30); POTASSIUM 5.4 mmol/L (3.5-5.1); TOTAL PROTEIN, SERUM 7.8 g/dL (6.4-8.2)
[2023-02-28 07:41] LABS: GLUCOMETER DEV NAME(LOC) 5N.2C; GLUCOSE,POINT OF CARE 106 MG/DL (70-110)
[2023-02-28] MEDS: HEPARIN SODIUM,PORCINE 5,000 UNITS/ML VIAL SQ SCH ×2 (08:00→15:10)
[2023-02-28] MEDS: CALCIUM ACETATE 667 MG CAPSULE PO SCH ×3 (08:00→17:25)
[2023-02-28] MEDS: CALCITRIOL 0.25 MCG CAPSULE PO SCH (09:02)
[2023-02-28] MEDS: GABAPENTIN 100 MG CAPSULE PO SCH ×3 (09:03→20:56)
[2023-02-28] MEDS: ESCITALOPRAM OXALATE 10 MG TABLET PO SCH (09:03)
[2023-02-28] MEDS: ONDANSETRON HCL 4 MG/2 ML VIAL IVP PRN ×3 (09:03→21:06)
[2023-02-28] MEDS: ASPIRIN 81 MG CHEWABLE TABLET PO SCH (09:04)
[2023-02-28] MEDS: CARVEDILOL 6.25 MG TABLET PO SCH ×2 (09:05→20:56)
[2023-02-28] MEDS: PANTOPRAZOLE SODIUM 40 MG/VIAL IVP SCH (09:06)
[2023-02-28] MEDS: EPOETIN ALFA 10,000 UNITS/ML VIAL SQ SCH (09:07)
[2023-02-28 09:11] VITALS: BP 139/64; PULSE 65; RESP 18; TEMP 97.7
[2023-02-28] MEDS ORDERED: SODIUM ZIRCONIUM CYCLOSILICATE 5 GM POWDER PACKET PO ONE (11:00)
[2023-02-28 12:28] VITALS: BP 103/47; PULSE 64; RESP 18; TEMP 97.9
[2023-02-28] MEDS: INSULIN LISPRO 100 UNITS/ML SQ PRN (17:27)
[2023-02-28 20:00] VITALS: BP 137/67; PULSE 64; RESP 18
[2023-02-28 20:26] LABS: GLUCOMETER DEV NAME(LOC) 5S.2C; GLUCOSE,POINT OF CARE 153 MG/DL (70-110)
[2023-02-28] MEDS: PRAZOSIN HCL 1 MG CAPSULE PO SCH (20:56)
[2023-02-28] MEDS: MIRTAZAPINE 15 MG TABLET PO SCH (20:56)
[2023-02-28] MEDS: ATORVASTATIN CALCIUM 40 MG TABLET PO SCH (20:56)
[2023-02-28] MEDS: CefTRIAXone SODIUM 2 GM in DEXTROSE 5%-WATER 50 ML IV SCH (22:38)
[2023-02-28 23:46] VITALS: BP 142/61; PULSE 66; RESP 19; TEMP 98.3
[2023-03-01] VITALS (14 sets, daily range): BP systolic 117–159; BP diastolic 40–134; PULSE 62–80; RESP 16–20; TEMP 97–97.9
[2023-03-01] MEDS: HEPARIN SODIUM,PORCINE 5,000 UNITS/ML VIAL SQ SCH ×5 (00:06→16:00)
[2023-03-01] MEDS: AZITHROMYCIN 500 MG/NS 250 ML IV SCH (00:07)
[2023-03-01] MEDS: MORPHINE SULFATE 2 MG/ML SYRINGE IVP PRN ×7 (00:32→21:31)
[2023-03-01] MEDS: PROMETHAZINE HCL 25 MG TABLET PO PRN (00:41)
[2023-03-01 03:46] LABS: GLUCOMETER DEV NAME(LOC) 5N.1C; GLUCOSE,POINT OF CARE 130 MG/DL (70-110)
[2023-03-01 06:46] LABS: GLUCOMETER DEV NAME(LOC) 5S.1B; GLUCOSE,POINT OF CARE 118 MG/DL (70-110)
[2023-03-01 06:46] LABS: GLUCOMETER DEV NAME(LOC) 5S.1B; GLUCOSE,POINT OF CARE 113 MG/DL (70-110)
[2023-03-01 07:22] LABS: BASOPHILS % (AUTO) 0.5 % (0.0-2.0); EOSINOPHILS % (AUTO) 5.7 % (1.0-6.0); HEMOGLOBIN 7.4 g/dL (12.0-16.0); LYMPHOCYTES # (AUTO) 1.4 K/uL (1.0-4.8); LYMPHOCYTES % (AUTO) 18.2 % (22.0-44.0); MEAN CORPUSCULAR HEMOGLOBIN 32.4 pg (26.0-34.0); MEAN CORPUSCULAR HGB CONC 33.4 G/dL (31.0-37.0); MEAN CORPUSCULAR VOLUME 97 fL (80-100); MONOCYTES # (AUTO) 0.8 K/uL (0.1-1.0); MONOCYTES % (AUTO) 9.8 % (2.0-9.0); NEUTROPHILS # (AUTO) 5.1 K/uL (1.8-7.7); NEUTROPHILS % (AUTO) 65.8 % (40.0-70.0); PLATELET COUNT (AUTO) 227 K/uL (150-450); RED BLOOD CELL COUNT(AUTO) 2.27 MIL/uL (4.00-5.20); RED CELL DISTRIBUTION WIDTH 16.2 % (11.5-14.5); WHITE BLOOD COUNT (AUTO) 7.7 K/uL (4.5-11.0)
[2023-03-01 07:39] LABS: ALBUMIN 3.5 g/dL (3.4-5.0); BILIRUBIN,TOTAL 0.4 mg/dL (0.1-1.0); CALCIUM, TOTAL 8.1 mg/dL (8.8-10.5); CREATININE 7.49 mg/dL (0.60-1.30); TOTAL PROTEIN, SERUM 8.2 g/dL (6.4-8.2)
[2023-03-01 07:40] LABS: POTASSIUM 6.2 mmol/L (3.5-5.1)
[2023-03-01] MEDS: CALCIUM ACETATE 667 MG CAPSULE PO SCH ×3 (08:00→18:26)
[2023-03-01] MEDS: PANTOPRAZOLE SODIUM 40 MG/VIAL IVP SCH (08:36)
[2023-03-01] MEDS: ONDANSETRON HCL 4 MG/2 ML VIAL IVP PRN ×3 (08:36→21:31)
[2023-03-01 09:20] LABS: MAGNESIUM 2.3 mg/dL (1.80-2.40); PHOSPHORUS 8.4 mg/dL (2.5-4.9)
[2023-03-01] MEDS: INSULIN LISPRO 100 UNITS/ML SQ PRN ×2 (11:18→17:55)
[2023-03-01] MEDS: GABAPENTIN 100 MG CAPSULE PO SCH ×3 (11:19→21:14)
[2023-03-01] MEDS: ESCITALOPRAM OXALATE 10 MG TABLET PO SCH (11:22)
[2023-03-01] MEDS: CARVEDILOL 6.25 MG TABLET PO SCH ×2 (14:18→21:14)
[2023-03-01] MEDS: FERROUS SULFATE 325 MG EC TABLET PO SCH (14:18)
[2023-03-01] MEDS: MIRTAZAPINE 15 MG TABLET PO SCH ×2 (14:18→21:14)
[2023-03-01] MEDS: ASPIRIN 81 MG CHEWABLE TABLET PO SCH (14:19)
[2023-03-01 18:52] LABS: GLUCOMETER DEV NAME(LOC) 5N.1C; GLUCOSE,POINT OF CARE 154 MG/DL (70-110)
[2023-03-01] MEDS ORDERED: HEPARIN SODIUM,PORCINE 1,000 UNITS/ML VIAL IVP ONE (20:49)
[2023-03-01] MEDS: PRAZOSIN HCL 1 MG CAPSULE PO SCH (21:14)
[2023-03-01] MEDS: ATORVASTATIN CALCIUM 40 MG TABLET PO SCH (21:14)
[2023-03-01] MEDS: CefTRIAXone SODIUM 2 GM in DEXTROSE 5%-WATER 50 ML IV SCH (22:51)
[2023-03-01 23:06] LABS: GLUCOMETER DEV NAME(LOC) 5N.2C; GLUCOSE,POINT OF CARE 162 MG/DL (70-110)
[2023-03-02] MEDS: AZITHROMYCIN 500 MG/NS 250 ML IV SCH (00:27)
[2023-03-02 01:10] VITALS: BP 132/43; PULSE 77; RESP 16; TEMP 97.6
[2023-03-02] MEDS: MORPHINE SULFATE 2 MG/ML SYRINGE IVP PRN ×6 (01:14→20:23)
[2023-03-02 01:26] LABS: GLUCOMETER DEV NAME(LOC) 5N.1C; GLUCOSE,POINT OF CARE 127 MG/DL (70-110)
[2023-03-02] MEDS: PROMETHAZINE HCL 25 MG TABLET PO PRN ×2 (02:29→08:35)
[2023-03-02 05:20] VITALS: BP 140/68; PULSE 70; RESP 18; TEMP 98.4
[2023-03-02] MEDS: ONDANSETRON HCL 4 MG/2 ML VIAL IVP PRN ×3 (06:33→20:18)
[2023-03-02] MEDS: HYDROCODONE/ACETAMINOPHEN 5-325 MG TABLET PO PRN ×3 (07:44→18:30)
[2023-03-02 07:55] VITALS: BP 124/60; PULSE 73; RESP 18; TEMP 99.1
[2023-03-02] MEDS: HEPARIN SODIUM,PORCINE 5,000 UNITS/ML VIAL SQ SCH ×3 (07:57→16:00)
[2023-03-02] MEDS: CALCIUM ACETATE 667 MG CAPSULE PO SCH ×3 (07:57→16:03)
[2023-03-02] MEDS: ASPIRIN 81 MG CHEWABLE TABLET PO SCH (08:07)
[2023-03-02] MEDS: ESCITALOPRAM OXALATE 10 MG TABLET PO SCH (08:07)
[2023-03-02] MEDS: CARVEDILOL 6.25 MG TABLET PO SCH ×2 (08:07→20:28)
[2023-03-02] MEDS: GABAPENTIN 100 MG CAPSULE PO SCH ×3 (08:08→20:28)
[2023-03-02] MEDS: PANTOPRAZOLE SODIUM 40 MG/VIAL IVP SCH (08:08)
[2023-03-02 10:09] LABS: BASOPHILS % (AUTO) 0.5 % (0.0-2.0); HEMATOCRIT 21.8 % (36-46); HEMOGLOBIN 7.1 g/dL (12.0-16.0); LYMPHOCYTES # (AUTO) 1.4 K/uL (1.0-4.8); LYMPHOCYTES % (AUTO) 17.8 % (22.0-44.0); MEAN CORPUSCULAR HEMOGLOBIN 31.7 pg (26.0-34.0); MEAN CORPUSCULAR HGB CONC 32.3 G/dL (31.0-37.0); MEAN CORPUSCULAR VOLUME 98 fL (80-100); MONOCYTES # (AUTO) 0.8 K/uL (0.1-1.0); MONOCYTES % (AUTO) 10.2 % (2.0-9.0); NEUTROPHILS # (AUTO) 5.1 K/uL (1.8-7.7); NEUTROPHILS % (AUTO) 67.5 % (40.0-70.0); PLATELET COUNT (AUTO) 223 K/uL (150-450); RED BLOOD CELL COUNT(AUTO) 2.22 MIL/uL (4.00-5.20); RED CELL DISTRIBUTION WIDTH 16.3 % (11.5-14.5); WHITE BLOOD COUNT (AUTO) 7.6 K/uL (4.5-11.0)
[2023-03-02 10:24] LABS: ALBUMIN 3.3 g/dL (3.4-5.0); BILIRUBIN,TOTAL 0.3 mg/dL (0.1-1.0); CALCIUM, TOTAL 8.4 mg/dL (8.8-10.5); CREATININE 5.59 mg/dL (0.60-1.30); POTASSIUM 4.7 mmol/L (3.5-5.1); TOTAL PROTEIN, SERUM 7.7 g/dL (6.4-8.2)
[2023-03-02] MEDS: INSULIN LISPRO 100 UNITS/ML SQ PRN (12:10)
[2023-03-02 20:00] VITALS: BP 136/54; PULSE 69; RESP 20; TEMP 98
[2023-03-02] MEDS: PRAZOSIN HCL 1 MG CAPSULE PO SCH (20:27)
[2023-03-02] MEDS: MIRTAZAPINE 15 MG TABLET PO SCH (20:27)
[2023-03-02] MEDS: ATORVASTATIN CALCIUM 40 MG TABLET PO SCH (20:28)
[2023-03-02] MEDS: CefTRIAXone SODIUM 2 GM in DEXTROSE 5%-WATER 50 ML IV SCH (23:03)
[2023-03-02 23:31] LABS: GLUCOMETER DEV NAME(LOC) 5S.2C; GLUCOSE,POINT OF CARE 118 MG/DL (70-110)
[2023-03-02 23:31] LABS: GLUCOMETER DEV NAME(LOC) 5S.2C; GLUCOSE,POINT OF CARE 130 MG/DL (70-110)
[2023-03-02 23:31] LABS: GLUCOMETER DEV NAME(LOC) 5S.2C; GLUCOSE,POINT OF CARE 173 MG/DL (70-110)
[2023-03-02] MEDS ORDERED: SODIUM CHLORIDE 0.9% 250 ML IV ONE (23:53)
[2023-03-03] VITALS (14 sets, daily range): BP systolic 103–167; BP diastolic 44–112; PULSE 68–88; RESP 18–20; TEMP 97.1–99.2
[2023-03-03] MEDS: AZITHROMYCIN 500 MG/NS 250 ML IV SCH (00:01)
[2023-03-03] MEDS: HEPARIN SODIUM,PORCINE 5,000 UNITS/ML VIAL SQ SCH ×5 (00:03→23:38)
[2023-03-03] MEDS: MORPHINE SULFATE 2 MG/ML SYRINGE IVP PRN ×6 (01:06→23:23)
[2023-03-03] MEDS ORDERED: SODIUM CHLORIDE 0.9% 1,000 ML ONE (05:44)
[2023-03-03 07:22] LABS: BASOPHILS % (AUTO) 0.8 % (0.0-2.0); EOSINOPHILS % (AUTO) 4.9 % (1.0-6.0); HEMATOCRIT 21.7 % (36-46); HEMOGLOBIN 7.2 g/dL (12.0-16.0); LYMPHOCYTES # (AUTO) 1.6 K/uL (1.0-4.8); LYMPHOCYTES % (AUTO) 20.8 % (22.0-44.0); MEAN CORPUSCULAR HEMOGLOBIN 32.6 pg (26.0-34.0); MEAN CORPUSCULAR HGB CONC 33.3 G/dL (31.0-37.0); MEAN CORPUSCULAR VOLUME 98 fL (80-100); MONOCYTES # (AUTO) 0.9 K/uL (0.1-1.0); MONOCYTES % (AUTO) 12.2 % (2.0-9.0); NEUTROPHILS # (AUTO) 4.6 K/uL (1.8-7.7); NEUTROPHILS % (AUTO) 61.3 % (40.0-70.0); PLATELET COUNT (AUTO) 223 K/uL (150-450); RED BLOOD CELL COUNT(AUTO) 2.22 MIL/uL (4.00-5.20); RED CELL DISTRIBUTION WIDTH 16.4 % (11.5-14.5); WHITE BLOOD COUNT (AUTO) 7.5 K/uL (4.5-11.0)
[2023-03-03 07:37] LABS: ALBUMIN 3.4 g/dL (3.4-5.0); BILIRUBIN,TOTAL 0.4 mg/dL (0.1-1.0); CALCIUM, TOTAL 8.5 mg/dL (8.8-10.5); CREATININE 6.91 mg/dL (0.60-1.30); POTASSIUM 5.2 mmol/L (3.5-5.1); TOTAL PROTEIN, SERUM 7.9 g/dL (6.4-8.2)
[2023-03-03] MEDS: CALCIUM ACETATE 667 MG CAPSULE PO SCH ×3 (07:46→14:54)
[2023-03-03] MEDS: HYDROCODONE/ACETAMINOPHEN 5-325 MG TABLET PO PRN ×3 (07:48→17:59)
[2023-03-03] MEDS: ESCITALOPRAM OXALATE 10 MG TABLET PO SCH (07:52)
[2023-03-03] MEDS: FERROUS SULFATE 325 MG EC TABLET PO SCH (07:52)
[2023-03-03] MEDS: GABAPENTIN 100 MG CAPSULE PO SCH ×3 (07:52→20:56)
[2023-03-03] MEDS: ASPIRIN 81 MG CHEWABLE TABLET PO SCH (07:52)
[2023-03-03] MEDS: CARVEDILOL 6.25 MG TABLET PO SCH ×2 (07:52→20:56)
[2023-03-03] MEDS: CALCITRIOL 0.25 MCG CAPSULE PO SCH (07:52)
[2023-03-03] MEDS: PANTOPRAZOLE SODIUM 40 MG/VIAL IVP SCH (07:53)
[2023-03-03] MEDS: ONDANSETRON HCL 4 MG/2 ML VIAL IVP PRN ×3 (10:05→23:22)
[2023-03-03] MEDS: EPOETIN ALFA 10,000 UNITS/ML VIAL SQ SCH (10:06)
[2023-03-03] MEDS: PROMETHAZINE HCL 25 MG TABLET PO PRN ×2 (11:38→18:03)
[2023-03-03] MEDS: INSULIN LISPRO 100 UNITS/ML SQ PRN ×2 (18:00→21:08)
[2023-03-03] MEDS: ATORVASTATIN CALCIUM 40 MG TABLET PO SCH (20:55)
[2023-03-03] MEDS: MIRTAZAPINE 15 MG TABLET PO SCH (20:55)
[2023-03-03] MEDS: PRAZOSIN HCL 1 MG CAPSULE PO SCH (20:56)
[2023-03-03] MEDS: CefTRIAXone SODIUM 2 GM in DEXTROSE 5%-WATER 50 ML IV SCH (23:22)
[2023-03-04] VITALS (11 sets, daily range): BP systolic 103–148; BP diastolic 38–72; PULSE 70–77; RESP 18–20; TEMP 97.6–98.8
[2023-03-04] MEDS: AZITHROMYCIN 500 MG/NS 250 ML IV SCH ×2 (00:55→23:43)
[2023-03-04] MEDS: MORPHINE SULFATE 2 MG/ML SYRINGE IVP PRN ×5 (03:14→21:57)
[2023-03-04] MEDS: ONDANSETRON HCL 4 MG/2 ML VIAL IVP PRN ×3 (08:47→21:57)
[2023-03-04] MEDS: CALCIUM ACETATE 667 MG CAPSULE PO SCH ×3 (08:50→17:56)
[2023-03-04] MEDS: PANTOPRAZOLE SODIUM 40 MG/VIAL IVP SCH (08:51)
[2023-03-04] MEDS: ESCITALOPRAM OXALATE 10 MG TABLET PO SCH (08:52)
[2023-03-04] MEDS: GABAPENTIN 100 MG CAPSULE PO SCH ×3 (08:52→21:57)
[2023-03-04] MEDS: ASPIRIN 81 MG CHEWABLE TABLET PO SCH (08:52)
[2023-03-04] MEDS: HEPARIN SODIUM,PORCINE 5,000 UNITS/ML VIAL SQ SCH ×2 (08:53→16:00)
[2023-03-04] MEDS: CARVEDILOL 6.25 MG TABLET PO SCH ×2 (09:00→21:57)
[2023-03-04 09:17] LABS: GLUCOMETER DEV NAME(LOC) 5N.1C; GLUCOSE,POINT OF CARE 113 MG/DL (70-110)
[2023-03-04 09:17] LABS: GLUCOMETER DEV NAME(LOC) 5N.1C; GLUCOSE,POINT OF CARE 96 MG/DL (70-110)
[2023-03-04 09:17] LABS: GLUCOMETER DEV NAME(LOC) 5N.1C; GLUCOSE,POINT OF CARE 111 MG/DL (70-110)
[2023-03-04 09:27] LABS: GLUCOMETER DEV NAME(LOC) 5N.2C; GLUCOSE,POINT OF CARE 168 MG/DL (70-110)
[2023-03-04 09:27] LABS: GLUCOMETER DEV NAME(LOC) 5N.2C; GLUCOSE,POINT OF CARE 135 MG/DL (70-110)
[2023-03-04 09:27] LABS: GLUCOMETER DEV NAME(LOC) 5N.2C; GLUCOSE,POINT OF CARE 151 MG/DL (70-110)
[2023-03-04 10:57] LABS: BASOPHILS % (AUTO) 0.7 % (0.0-2.0); EOSINOPHILS % (AUTO) 4.8 % (1.0-6.0); HEMATOCRIT 21.2 % (36-46); LYMPHOCYTES # (AUTO) 1.3 K/uL (1.0-4.8); LYMPHOCYTES % (AUTO) 18.5 % (22.0-44.0); MEAN CORPUSCULAR HGB CONC 32.9 G/dL (31.0-37.0); MEAN CORPUSCULAR VOLUME 97 fL (80-100); MONOCYTES # (AUTO) 0.8 K/uL (0.1-1.0); MONOCYTES % (AUTO) 11.1 % (2.0-9.0); NEUTROPHILS # (AUTO) 4.7 K/uL (1.8-7.7); NEUTROPHILS % (AUTO) 64.9 % (40.0-70.0); PLATELET COUNT (AUTO) 193 K/uL (150-450); RED BLOOD CELL COUNT(AUTO) 2.18 MIL/uL (4.00-5.20); RED CELL DISTRIBUTION WIDTH 16.2 % (11.5-14.5); WHITE BLOOD COUNT (AUTO) 7.2 K/uL (4.5-11.0)
[2023-03-04 11:17] LABS: ALBUMIN 3.1 g/dL (3.4-5.0); BILIRUBIN,TOTAL 0.3 mg/dL (0.1-1.0); CALCIUM, TOTAL 8.5 mg/dL (8.8-10.5); CREATININE 5.92 mg/dL (0.60-1.30); POTASSIUM 4.7 mmol/L (3.5-5.1); TOTAL PROTEIN, SERUM 7.3 g/dL (6.4-8.2)
[2023-03-04] MEDS ORDERED: LIDOCAINE/PF 2% 5 ML VIAL IM ONE (12:00)
[2023-03-04] MEDS: PROMETHAZINE HCL 25 MG TABLET PO PRN ×2 (12:08→17:56)
[2023-03-04] MEDS: INSULIN LISPRO 100 UNITS/ML SQ PRN (12:17)
[2023-03-04 16:36] LABS: GLUCOMETER DEV NAME(LOC) 5S.1B; GLUCOSE,POINT OF CARE 142 MG/DL (70-110)
[2023-03-04 20:36] LABS: GLUCOMETER DEV NAME(LOC) 5N.1C; GLUCOSE,POINT OF CARE 115 MG/DL (70-110)
[2023-03-04] MEDS: ATORVASTATIN CALCIUM 40 MG TABLET PO SCH (21:57)
[2023-03-04] MEDS: PRAZOSIN HCL 1 MG CAPSULE PO SCH (21:57)
[2023-03-04] MEDS: MIRTAZAPINE 15 MG TABLET PO SCH (21:58)
[2023-03-04] MEDS: CefTRIAXone SODIUM 2 GM in DEXTROSE 5%-WATER 50 ML IV SCH (22:21)
[2023-03-05 00:53] VITALS: BP 115/62; PULSE 72; RESP 18; TEMP 98.5
[2023-03-05] MEDS: MORPHINE SULFATE 2 MG/ML SYRINGE IVP PRN ×5 (01:08→19:18)
[2023-03-05 04:56] VITALS: BP 134/50; PULSE 94; RESP 18; TEMP 98.4
[2023-03-05] MEDS: HYDROCODONE/ACETAMINOPHEN 5-325 MG TABLET PO PRN ×4 (05:17→17:26)
[2023-03-05 07:57] LABS: BASOPHILS % (AUTO) 0.5 % (0.0-2.0); LYMPHOCYTES # (AUTO) 1.3 K/uL (1.0-4.8); LYMPHOCYTES % (AUTO) 19.9 % (22.0-44.0); MEAN CORPUSCULAR HEMOGLOBIN 31.6 pg (26.0-34.0); MEAN CORPUSCULAR HGB CONC 32.4 G/dL (31.0-37.0); MEAN CORPUSCULAR VOLUME 98 fL (80-100); MONOCYTES # (AUTO) 0.7 K/uL (0.1-1.0); MONOCYTES % (AUTO) 11.2 % (2.0-9.0); NEUTROPHILS # (AUTO) 4.2 K/uL (1.8-7.7); NEUTROPHILS % (AUTO) 63.4 % (40.0-70.0); PLATELET COUNT (AUTO) 199 K/uL (150-450); RED BLOOD CELL COUNT(AUTO) 2.14 MIL/uL (4.00-5.20); RED CELL DISTRIBUTION WIDTH 16.6 % (11.5-14.5); WHITE BLOOD COUNT (AUTO) 6.7 K/uL (4.5-11.0)
[2023-03-05] MEDS: HEPARIN SODIUM,PORCINE 5,000 UNITS/ML VIAL SQ SCH ×3 (08:00→15:49)
[2023-03-05] MEDS: CALCIUM ACETATE 667 MG CAPSULE PO SCH ×3 (08:00→16:50)
[2023-03-05 08:03] LABS: HEMATOCRIT 20.9 % (36-46); HEMOGLOBIN 6.8 g/dL (12.0-16.0)
[2023-03-05 08:21] LABS: ALBUMIN 3.1 g/dL (3.4-5.0); BILIRUBIN,TOTAL 0.3 mg/dL (0.1-1.0); CALCIUM, TOTAL 8.4 mg/dL (8.8-10.5); CREATININE 4.81 mg/dL (0.60-1.30); POTASSIUM 4.5 mmol/L (3.5-5.1); TOTAL PROTEIN, SERUM 7.2 g/dL (6.4-8.2)
[2023-03-05 08:28] VITALS: BP 126/56; PULSE 72; RESP 18; TEMP 98.3
[2023-03-05] MEDS: CALCITRIOL 0.25 MCG CAPSULE PO SCH (08:53)
[2023-03-05] MEDS: ASPIRIN 81 MG CHEWABLE TABLET PO SCH (08:53)
[2023-03-05] MEDS: ESCITALOPRAM OXALATE 10 MG TABLET PO SCH (08:53)
[2023-03-05] MEDS: GABAPENTIN 100 MG CAPSULE PO SCH ×3 (08:54→20:35)
[2023-03-05] MEDS: PANTOPRAZOLE SODIUM 40 MG/VIAL IVP SCH (08:54)
[2023-03-05] MEDS: CARVEDILOL 6.25 MG TABLET PO SCH ×2 (08:54→20:35)
[2023-03-05] MEDS: FERROUS SULFATE 325 MG EC TABLET PO SCH (08:54)
[2023-03-05] MEDS: ONDANSETRON HCL 4 MG/2 ML VIAL IVP PRN ×3 (08:54→20:35)
[2023-03-05] MEDS: EPOETIN ALFA 10,000 UNITS/ML VIAL SQ SCH (08:59)
[2023-03-05 11:49] VITALS: BP 167/98; PULSE 67; RESP 19; TEMP 98.2
[2023-03-05] MEDS: INSULIN LISPRO 100 UNITS/ML SQ PRN (12:31)
[2023-03-05] MEDS: PROMETHAZINE HCL 25 MG TABLET PO PRN ×2 (12:34→19:17)
[2023-03-05 15:39] VITALS: BP 174/91; PULSE 67; RESP 19; TEMP 97.5
[2023-03-05 19:38] VITALS: BP 129/60; PULSE 67; RESP 19; TEMP 97.9
[2023-03-05] MEDS: ATORVASTATIN CALCIUM 40 MG TABLET PO SCH (20:35)
[2023-03-05] MEDS: MIRTAZAPINE 15 MG TABLET PO SCH (20:35)
[2023-03-05] MEDS: PRAZOSIN HCL 1 MG CAPSULE PO SCH (20:35)
[2023-03-05] MEDS: CefTRIAXone SODIUM 2 GM in DEXTROSE 5%-WATER 50 ML IV SCH (22:35)
[2023-03-05 22:51] LABS: GLUCOMETER DEV NAME(LOC) 5N.1C; GLUCOSE,POINT OF CARE 142 MG/DL (70-110)
[2023-03-06] VITALS (13 sets, daily range): BP systolic 102–145; BP diastolic 30–88; PULSE 63–98; RESP 16–20; TEMP 97.9–98.8
[2023-03-06] MEDS: MORPHINE SULFATE 2 MG/ML SYRINGE IVP PRN ×5 (00:02→21:44)
[2023-03-06] MEDS: AZITHROMYCIN 500 MG/NS 250 ML IV SCH (00:02)
[2023-03-06] MEDS: HEPARIN SODIUM,PORCINE 5,000 UNITS/ML VIAL SQ SCH ×4 (08:00→23:02)
[2023-03-06] MEDS: CALCIUM ACETATE 667 MG CAPSULE PO SCH ×3 (08:00→16:21)
[2023-03-06] MEDS: PANTOPRAZOLE SODIUM 40 MG/VIAL IVP SCH (08:08)
[2023-03-06] MEDS: ONDANSETRON HCL 4 MG/2 ML VIAL IVP PRN ×3 (08:08→20:38)
[2023-03-06] MEDS: ESCITALOPRAM OXALATE 10 MG TABLET PO SCH (08:09)
[2023-03-06] MEDS: GABAPENTIN 100 MG CAPSULE PO SCH ×3 (08:09→21:43)
[2023-03-06] MEDS: ASPIRIN 81 MG CHEWABLE TABLET PO SCH (08:09)
[2023-03-06 08:12] LABS: GLUCOMETER DEV NAME(LOC) 5S.1B; GLUCOSE,POINT OF CARE 115 MG/DL (70-110)
[2023-03-06 08:12] LABS: GLUCOMETER DEV NAME(LOC) 5S.1B; GLUCOSE,POINT OF CARE 212 MG/DL (70-110)
[2023-03-06 08:12] LABS: GLUCOMETER DEV NAME(LOC) 5S.1B; GLUCOSE,POINT OF CARE 143 MG/DL (70-110)
[2023-03-06] MEDS: CARVEDILOL 6.25 MG TABLET PO SCH ×2 (08:14→21:43)
[2023-03-06] MEDS: HYDROCODONE/ACETAMINOPHEN 5-325 MG TABLET PO PRN ×3 (09:07→18:13)
[2023-03-06 10:46] LABS: GLUCOMETER DEV NAME(LOC) 5S.2C; GLUCOSE,POINT OF CARE 128 MG/DL (70-110)
[2023-03-06 11:39] LABS: BASOPHILS % (AUTO) 0.6 % (0.0-2.0); EOSINOPHILS % (AUTO) 4.3 % (1.0-6.0); HEMATOCRIT 22.6 % (36-46); HEMOGLOBIN 7.3 g/dL (12.0-16.0); LYMPHOCYTES % (AUTO) 13.9 % (22.0-44.0); MEAN CORPUSCULAR HEMOGLOBIN 31.6 pg (26.0-34.0); MEAN CORPUSCULAR HGB CONC 32.4 G/dL (31.0-37.0); MEAN CORPUSCULAR VOLUME 98 fL (80-100); MONOCYTES # (AUTO) 0.6 K/uL (0.1-1.0); NEUTROPHILS # (AUTO) 5.3 K/uL (1.8-7.7); NEUTROPHILS % (AUTO) 73.2 % (40.0-70.0); PLATELET COUNT (AUTO) 187 K/uL (150-450); RED BLOOD CELL COUNT(AUTO) 2.32 MIL/uL (4.00-5.20); RED CELL DISTRIBUTION WIDTH 16.6 % (11.5-14.5); WHITE BLOOD COUNT (AUTO) 7.2 K/uL (4.5-11.0)
[2023-03-06 12:12] LABS: GLUCOMETER DEV NAME(LOC) 5S.2C; GLUCOSE,POINT OF CARE 185 MG/DL (70-110)
[2023-03-06] MEDS: PROMETHAZINE HCL 25 MG TABLET PO PRN (17:10)
[2023-03-06] MEDS: ATORVASTATIN CALCIUM 40 MG TABLET PO SCH (21:43)
[2023-03-06] MEDS: PRAZOSIN HCL 1 MG CAPSULE PO SCH (21:43)
[2023-03-06] MEDS: MIRTAZAPINE 15 MG TABLET PO SCH (21:43)
[2023-03-06] MEDS: CefTRIAXone SODIUM 2 GM in DEXTROSE 5%-WATER 50 ML IV SCH ×2 (22:37→23:00)
[2023-03-06] MEDS: INSULIN LISPRO 100 UNITS/ML SQ PRN (22:38)
[2023-03-07] MEDS: AZITHROMYCIN 500 MG/NS 250 ML IV SCH
[2023-03-07 01:10] VITALS: BP 145/64; PULSE 73; RESP 20; TEMP 97.5
[2023-03-07] MEDS: HYDROCODONE/ACETAMINOPHEN 5-325 MG TABLET PO PRN ×4 (01:48→15:27)
[2023-03-07 02:30] LABS: GLUCOMETER DEV NAME(LOC) 5N.1C; GLUCOSE,POINT OF CARE 140 MG/DL (70-110)
[2023-03-07 05:40] VITALS: BP 108/74; PULSE 69; RESP 20; TEMP 98.3
[2023-03-07 06:16] LABS: GLUCOMETER DEV NAME(LOC) 5S.2C; GLUCOSE,POINT OF CARE 154 MG/DL (70-110)
[2023-03-07 07:26] LABS: GLUCOMETER DEV NAME(LOC) 5N.1C; GLUCOSE,POINT OF CARE 106 MG/DL (70-110)
[2023-03-07] MEDS: HEPARIN SODIUM,PORCINE 5,000 UNITS/ML VIAL SQ SCH ×3 (08:00→15:28)
[2023-03-07] MEDS: CALCIUM ACETATE 667 MG CAPSULE PO SCH ×4 (08:00→18:28)
[2023-03-07 08:46] VITALS: BP 139/52; PULSE 64; RESP 19; TEMP 97.8
[2023-03-07] MEDS: PROMETHAZINE HCL 25 MG TABLET PO PRN ×2 (08:55→18:28)
[2023-03-07] MEDS: FERROUS SULFATE 325 MG EC TABLET PO SCH (08:55)
[2023-03-07] MEDS: CARVEDILOL 6.25 MG TABLET PO SCH ×2 (08:55→20:13)
[2023-03-07] MEDS: GABAPENTIN 100 MG CAPSULE PO SCH ×3 (08:55→20:48)
[2023-03-07] MEDS: ESCITALOPRAM OXALATE 10 MG TABLET PO SCH (08:56)
[2023-03-07] MEDS: PANTOPRAZOLE SODIUM 40 MG/VIAL IVP SCH ×2 (08:56→09:00)
[2023-03-07] MEDS: EPOETIN ALFA 10,000 UNITS/ML VIAL SQ SCH (08:56)
[2023-03-07] MEDS: CALCITRIOL 0.25 MCG CAPSULE PO SCH (08:56)
[2023-03-07] MEDS: ASPIRIN 81 MG CHEWABLE TABLET PO SCH (08:56)
[2023-03-07] MEDS: INSULIN LISPRO 100 UNITS/ML SQ PRN (12:51)
[2023-03-07 14:51] LABS: GLUCOMETER DEV NAME(LOC) 6N.1; GLUCOSE,POINT OF CARE 186 MG/DL (70-110)
[2023-03-07 15:28] VITALS: BP 143/82; PULSE 69; RESP 18; TEMP 98.3
[2023-03-07] MEDS: PRAZOSIN HCL 1 MG CAPSULE PO SCH (20:12)
[2023-03-07] MEDS: MORPHINE SULFATE 2 MG/ML SYRINGE IVP PRN (20:13)
[2023-03-07] MEDS: MIRTAZAPINE 15 MG TABLET PO SCH (20:13)
[2023-03-07] MEDS: ATORVASTATIN CALCIUM 40 MG TABLET PO SCH (20:13)
[2023-03-07] MEDS: ONDANSETRON HCL 4 MG/2 ML VIAL IVP PRN (20:13)
[2023-03-07 21:46] LABS: BASOPHILS % (AUTO) 0.5 % (0.0-2.0); EOSINOPHILS % (AUTO) 3.7 % (1.0-6.0); HEMATOCRIT 22.5 % (36-46); HEMOGLOBIN 7.5 g/dL (12.0-16.0); LYMPHOCYTES # (AUTO) 0.9 K/uL (1.0-4.8); LYMPHOCYTES % (AUTO) 11.5 % (22.0-44.0); MEAN CORPUSCULAR HEMOGLOBIN 32.7 pg (26.0-34.0); MEAN CORPUSCULAR HGB CONC 33.4 G/dL (31.0-37.0); MEAN CORPUSCULAR VOLUME 98 fL (80-100); MONOCYTES # (AUTO) 0.6 K/uL (0.1-1.0); NEUTROPHILS # (AUTO) 6.2 K/uL (1.8-7.7); NEUTROPHILS % (AUTO) 77.3 % (40.0-70.0); PLATELET COUNT (AUTO) 165 K/uL (150-450); RED CELL DISTRIBUTION WIDTH 17.7 % (11.5-14.5); WHITE BLOOD COUNT (AUTO) 8.1 K/uL (4.5-11.0)
[2023-03-07 21:55] LABS: CALCIUM, TOTAL 8.3 mg/dL (8.8-10.5); CREATININE 5.67 mg/dL (0.60-1.30); POTASSIUM 5.8 mmol/L (3.5-5.1)
[2023-03-07 21:56] VITALS: BP 173/80; PULSE 70; RESP 20; TEMP 97.7
[2023-03-07] MEDS ORDERED: SODIUM CHLORIDE 0.9% 250 ML IV ONE (22:25)
[2023-03-07] MEDS: CefTRIAXone SODIUM 2 GM in DEXTROSE 5%-WATER 50 ML IV SCH (23:08)
[2023-03-08] VITALS (20 sets, daily range): BP systolic 84–162; BP diastolic 23–91; PULSE 65–102; RESP 18–20; TEMP 97.4–98.8
[2023-03-08] MEDS: AZITHROMYCIN 500 MG/NS 250 ML IV SCH (00:11)
[2023-03-08] MEDS: MORPHINE SULFATE 2 MG/ML SYRINGE IVP PRN ×6 (00:39→20:54)
[2023-03-08] MEDS: PROMETHAZINE HCL 25 MG TABLET PO PRN ×2 (00:39→18:41)
[2023-03-08 03:01] LABS: GLUCOMETER DEV NAME(LOC) 6S.2; GLUCOSE,POINT OF CARE 136 MG/DL (70-110)
[2023-03-08 03:01] LABS: GLUCOMETER DEV NAME(LOC) 6N.2B; GLUCOSE,POINT OF CARE 132 MG/DL (70-110)
[2023-03-08 06:45] LABS: HEMATOCRIT 21.4 % (36-46); MEAN CORPUSCULAR HEMOGLOBIN 32.1 pg (26.0-34.0); MEAN CORPUSCULAR HGB CONC 32.7 G/dL (31.0-37.0); MEAN CORPUSCULAR VOLUME 98 fL (80-100); PLATELET COUNT (AUTO) 173 K/uL (150-450); RED BLOOD CELL COUNT(AUTO) 2.18 MIL/uL (4.00-5.20); WHITE BLOOD COUNT (AUTO) 7.6 K/uL (4.5-11.0)
[2023-03-08 07:02] LABS: CALCIUM, TOTAL 8.4 mg/dL (8.8-10.5); CREATININE 6.08 mg/dL (0.60-1.30); POTASSIUM 5.7 mmol/L (3.5-5.1)
[2023-03-08 07:56] LABS: BAND NEUTROPHILS % (MANUAL) 9 % (0-5); LYMPHOCYTES % (MANUAL) 16 % (22-44); RBC MORPHOLOGY COMMENT NORMAL RBC MORPH; SEGMENTED NEUTROPHILS % 75 % (40-70); TOTAL CELLS COUNTED 100
[2023-03-08] MEDS: HEPARIN SODIUM,PORCINE 5,000 UNITS/ML VIAL SQ SCH ×4 (08:00→16:32)
[2023-03-08] MEDS: ONDANSETRON HCL 4 MG/2 ML VIAL IVP PRN ×3 (08:26→22:56)
[2023-03-08] MEDS: CALCIUM ACETATE 667 MG CAPSULE PO SCH ×4 (08:31→16:54)
[2023-03-08] MEDS: PANTOPRAZOLE SODIUM 40 MG/VIAL IVP SCH (09:00)
[2023-03-08] MEDS: CARVEDILOL 6.25 MG TABLET PO SCH ×2 (09:00→20:53)
[2023-03-08 12:16] LABS: GLUCOMETER DEV NAME(LOC) 6N.1; GLUCOSE,POINT OF CARE 107 MG/DL (70-110)
[2023-03-08] MEDS: GABAPENTIN 100 MG CAPSULE PO SCH ×3 (12:44→20:53)
[2023-03-08] MEDS: ASPIRIN 81 MG CHEWABLE TABLET PO SCH (16:45)
[2023-03-08] MEDS: FOLIC ACID/VIT B COMPLEX AND C TABLET PO SCH (16:45)
[2023-03-08] MEDS: ESCITALOPRAM OXALATE 10 MG TABLET PO SCH (16:45)
[2023-03-08 20:21] LABS: GLUCOMETER DEV NAME(LOC) 6S.2; GLUCOSE,POINT OF CARE 130 MG/DL (70-110)
[2023-03-08 20:21] LABS: GLUCOMETER DEV NAME(LOC) 6N.2B; GLUCOSE,POINT OF CARE 105 MG/DL (70-110)
[2023-03-08] MEDS: INSULIN LISPRO 100 UNITS/ML SQ PRN (20:52)
[2023-03-08] MEDS: PRAZOSIN HCL 1 MG CAPSULE PO SCH (20:53)
[2023-03-08] MEDS: ATORVASTATIN CALCIUM 40 MG TABLET PO SCH (20:53)
[2023-03-08] MEDS: MIRTAZAPINE 15 MG TABLET PO SCH (20:53)
[2023-03-08] MEDS ORDERED: SODIUM CHLORIDE 0.9% 250 ML IV ONE (20:55)
[2023-03-08 21:36] LABS: GLUCOMETER DEV NAME(LOC) 4E.2; GLUCOSE,POINT OF CARE 263 MG/DL (70-110)
[2023-03-09 00:15] VITALS: BP 169/69; PULSE 73; RESP 18; TEMP 98.5
[2023-03-09 00:45] VITALS: BP 149/99; PULSE 73; RESP 19; TEMP 98.4
[2023-03-09] MEDS: MORPHINE SULFATE 2 MG/ML SYRINGE IVP PRN ×3 (00:51→08:58)
[2023-03-09] MEDS: CefTRIAXone SODIUM 2 GM in DEXTROSE 5%-WATER 50 ML IV SCH (00:52)
[2023-03-09] MEDS: AZITHROMYCIN 500 MG/NS 250 ML IV SCH (01:40)
[2023-03-09 04:00] VITALS: BP 160/63; PULSE 72; RESP 20; TEMP 98.6
[2023-03-09] MEDS: ONDANSETRON HCL 4 MG/2 ML VIAL IVP PRN (04:56)
[2023-03-09 06:33] LABS: BASOPHILS % (AUTO) 0.7 % (0.0-2.0); EOSINOPHILS % (AUTO) 2.4 % (1.0-6.0); HEMATOCRIT 24.3 % (36-46); LYMPHOCYTES # (AUTO) 1.1 K/uL (1.0-4.8); LYMPHOCYTES % (AUTO) 16.3 % (22.0-44.0); MEAN CORPUSCULAR HEMOGLOBIN 32.3 pg (26.0-34.0); MEAN CORPUSCULAR HGB CONC 33.1 G/dL (31.0-37.0); MEAN CORPUSCULAR VOLUME 98 fL (80-100); MONOCYTES # (AUTO) 0.7 K/uL (0.1-1.0); MONOCYTES % (AUTO) 10.8 % (2.0-9.0); NEUTROPHILS # (AUTO) 4.7 K/uL (1.8-7.7); NEUTROPHILS % (AUTO) 69.8 % (40.0-70.0); PLATELET COUNT (AUTO) 166 K/uL (150-450); RED BLOOD CELL COUNT(AUTO) 2.49 MIL/uL (4.00-5.20); WHITE BLOOD COUNT (AUTO) 6.7 K/uL (4.5-11.0)
[2023-03-09 07:07] LABS: CALCIUM, TOTAL 7.8 mg/dL (8.8-10.5); CREATININE 4.26 mg/dL (0.60-1.30)
[2023-03-09 07:20] VITALS: BP 156/64; PULSE 74; RESP 20; TEMP 98.4
[2023-03-09 07:36] LABS: GLUCOMETER DEV NAME(LOC) 6N.1; GLUCOSE,POINT OF CARE 109 MG/DL (70-110)
[2023-03-09] MEDS: HEPARIN SODIUM,PORCINE 5,000 UNITS/ML VIAL SQ SCH ×2 (08:00)
[2023-03-09] MEDS: PROMETHAZINE HCL 25 MG TABLET PO PRN (08:06)
[2023-03-09] MEDS: CARVEDILOL 6.25 MG TABLET PO SCH (08:07)
[2023-03-09] MEDS: ASPIRIN 81 MG CHEWABLE TABLET PO SCH (08:07)
[2023-03-09] MEDS: FERROUS SULFATE 325 MG EC TABLET PO SCH (08:08)
[2023-03-09] MEDS: GABAPENTIN 100 MG CAPSULE PO SCH (08:08)
[2023-03-09] MEDS: PANTOPRAZOLE SODIUM 40 MG/VIAL IVP SCH (08:08)
[2023-03-09] MEDS: CALCIUM ACETATE 667 MG CAPSULE PO SCH ×2 (08:09→12:20)
[2023-03-09] MEDS: FOLIC ACID/VIT B COMPLEX AND C TABLET PO SCH (08:09)
[2023-03-09] MEDS: ESCITALOPRAM OXALATE 10 MG TABLET PO SCH (08:09)
[2023-03-09] MEDS: HYDROCODONE/ACETAMINOPHEN 5-325 MG TABLET PO PRN (14:03)
[2023-03-10 05:26] LABS: GLUCOMETER DEV NAME(LOC) 6N.1; GLUCOSE,POINT OF CARE 136 MG/DL (70-110)
== END 2023-03-09 15:55 | disposition home or self-care (01) | DRG 139 ==
LOC: EMS 19:27 → 5S 23:00 → 6N 03-07 11:25
PROVIDERS: ADMIT Hospitalist; ATTEND Hospitalist
PROC: 30233N1 Transfusion of Nonautologous Red Blood Cells into Peripheral Vein, Percutaneous Approach (ICD-10-PCS; principal; 2023-02-26)
PROC: 5A1D70Z Performance of Urinary Filtration, Intermittent, Less than 6 Hours Per Day (ICD-10-PCS; 2023-02-27)
PROC: 5A1D70Z Performance of Urinary Filtration, Intermittent, Less than 6 Hours Per Day (ICD-10-PCS; 2023-03-01)
PROC: 5A1D70Z Performance of Urinary Filtration, Intermittent, Less than 6 Hours Per Day (ICD-10-PCS; 2023-03-03)
PROC: 5A1D70Z Performance of Urinary Filtration, Intermittent, Less than 6 Hours Per Day (ICD-10-PCS; 2023-03-04)
PROC: 5A1D70Z Performance of Urinary Filtration, Intermittent, Less than 6 Hours Per Day (ICD-10-PCS; 2023-03-06)
PROC: 5A1D70Z Performance of Urinary Filtration, Intermittent, Less than 6 Hours Per Day (ICD-10-PCS; 2023-03-08)
DX: J18.1 Lobar pneumonia, unspecified organism (principal); I12.0 Hypertensive chronic kidney disease with stage 5 chronic kidney disease or end stage renal disease; E11.22 Type 2 diabetes mellitus with diabetic chronic kidney disease; D63.1 Anemia in chronic kidney disease; E87.1 Hypo-osmolality and hyponatremia; J44.0 Chronic obstructive pulmonary disease with (acute) lower respiratory infection; N18.6 End stage renal disease; N92.1 Excessive and frequent menstruation with irregular cycle; F32.A Depression, unspecified; N93.9 Abnormal uterine and vaginal bleeding, unspecified; E66.01 Morbid (severe) obesity due to excess calories; Z68.41 Body mass index [BMI] 40.0-44.9, adult; Z20.822 Contact with and (suspected) exposure to COVID-19; E11.40 Type 2 diabetes mellitus with diabetic neuropathy, unspecified; E78.00 Pure hypercholesterolemia, unspecified; F41.9 Anxiety disorder, unspecified; E87.5 Hyperkalemia; Z86.73 Personal history of transient ischemic attack (TIA), and cerebral infarction without residual deficits; Z91.013 Allergy to seafood; Z83.3 Family history of diabetes mellitus; Z91.158 Patient's noncompliance with renal dialysis for other reason; Z99.2 Dependence on renal dialysis; Z79.82 Long term (current) use of aspirin; Z79.899 Other long term (current) drug therapy
CPT/HCPCS: 36245; 36569; 70450; 71045; 76856; 76937; 80048; 80053; 80061; 82962; 83735; 83880; 84100; 84484; 84702; 85007; 85025; 85027; 86850; 86860; 86870; 86880; 86900; 86901; 86905; 86906; 86922; 86971; 86999; 87081; 87340; 87804; 90935; 93005; 97163; 99285; C9113; G0238; G0378; J0456; J0696; J0885; J1200; J1644; J2270; J2405; J2765; J3490; J7030; J7050; J7060; P9016; Q9967; 36415-L1; 36415-TC